=== PATIENT | female | born 1970 | race Caucasian/White ===

== ENCOUNTER → 2023-03-04 | Outpatient (CLI) | payer OTHER | LOC: M SOG 08:30 | PROVIDERS: ATTEND Orthopaedic Surgery | DX: M25.571 Pain in right ankle and joints of right foot (principal); Z53.9 Procedure and treatment not carried out, unspecified reason ==

== ENCOUNTER → 2023-05-19 | Outpatient (CLI) | payer OTHER | LOC: M SOG 07:57 | PROVIDERS: ATTEND Physician Assistant | DX: M25.571 Pain in right ankle and joints of right foot (principal); M77.32 Calcaneal spur, left foot ==

== ENCOUNTER → 2024-01-23 | Outpatient (REF) | payer OTHER ==
[2024-01-23 19:06] LABS: THYROID STIMULATING HORMONE 7.282 uIU/ML (0.55-4.78)
[2024-01-23 19:08] LABS: FREE T4 1.04 NG/DL (0.89-1.76)
== END ==
LOC: M LABWUC 17:21
PROVIDERS: ATTEND Nurse Practitioner Family
DX: E03.9 Hypothyroidism, unspecified (principal)

== ENCOUNTER → 2024-09-13 | Outpatient (CLI) | payer OTHER | LOC: M WHC 09:38 | PROVIDERS: ATTEND Nurse Practitioner Family | DX: Z12.31 Encounter for screening mammogram for malignant neoplasm of breast (principal); R92.323 Mammographic fibroglandular density, bilateral breasts ==

== ENCOUNTER → 2024-12-06 | Outpatient (CLI) | payer OTHER | LOC: M LAB 16:37 | PROVIDERS: ATTEND Nurse Practitioner Family | DX: E03.9 Hypothyroidism, unspecified (principal) ==

== ENCOUNTER 2025-05-27 16:10 | Emergency (ER) | payer OTHER ==
[~2025-05-27] VITALS: Ht 157.5 cm; Wt 118.6 kg
[2025-05-27 16:13] VITALS: TEMP 97.5
[2025-05-27] MEDS ORDERED: LEVO150T7 (16:20)
[2025-05-27 17:55] VITALS: BP 131/86; O2SAT 98
== END 2025-05-27 18:01 | disposition home or self-care (01) ==
LOC: M ED 16:10
DX: S99.922A Unspecified injury of left foot, initial encounter (principal); X50.0XXA Overexertion from strenuous movement or load, initial encounter; E03.9 Hypothyroidism, unspecified; M77.32 Calcaneal spur, left foot; R22.42 Localized swelling, mass and lump, left lower limb; M20.12 Hallux valgus (acquired), left foot; Y92.481 Parking lot as the place of occurrence of the external cause; Y93.89 Activity, other specified; Y99.9 Unspecified external cause status; Z79.899 Other long term (current) drug therapy